=== PATIENT | male | born 1965 | race Caucasian/White ===

== ENCOUNTER 2016-11-24 01:17 | Emergency (ER) | payer SELFPAY ==
[2016-11-24 01:25] VITALS: BP 116/81
--- NOTE | 2016-11-24 01:33 | EDM.PDOC ---
ED HPI GENERAL MEDICAL PROBLEM - General Chief Complaint: Chest Pain Stated Complaint: [facility] Time Seen by Provider: 11/24/16 01:23 - History of Present Illness INITIAL COMMENTS - FREE TEXT/NARRATIVE: 51-year-old male presents emergency room, brought in by EMS, with chest pain. This pain started around 10:30-11:00 this evening. He describes it as substernal it does not radiate into his arms or into his neck At times it goes across his left lower chest. This pain is not associated with any diaphoresis or shortness of breath. He did have some brief nausea. EMS gave him a spray of nitroglycerin he developed a headache fairly quickly and this was followed up with some morphine with good relief of symptoms. 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 His pacemaker rate was turned down to 45. It sounds like he has a pacemaker defibrillator. However by history his last ejection fraction was in the low 60s Middle Chest Pain Score (Numeric/FACES): 2 - Related Data Allergies Allergy/AdvReac Type Severity Reaction Status Date / Time niacin Allergy Redness Verified 11/24/16 01:29 Home Meds: Home Meds Amiodarone [Cordarone] 200 mg PO DAILY 11/24/16 [History] Aspirin 81 mg PO BRK 11/24/16 [History] Carvedilol 6.25 mg PO BID 11/24/16 [History] Lansoprazole [Prevacid] 15 mg PO DAILY 11/24/16 [History] Lansoprazole [Prevacid] 30 mg PO Q24H #30 capsule. 11/24/16 [Rx] Levothyroxine [Synthroid] 200 mcg PO ACBREAKFAST 11/24/16 [History] Losartan [Cozaar] 25 mg PO DAILY 11/24/16 [History] Magnesium Oxide 400 mg PO DAILY 11/24/16 [History] Pravastatin Sodium [Pravachol] 40 mg PO BEDTIME 11/24/16 [History] Sucralfate [Carafate] 1 gm PO QIDACANDBED #30 tablet 11/24/16 [Rx] ED ROS GENERAL - Review of Systems Review Of Systems: See Below Constitutional: Reports: No Symptoms HEENT: Reports: No Symptoms Respiratory: Reports: No Symptoms Cardiovascular: Reports: Chest Pain. Denies: Dyspnea on Exertion, Edema Endocrine: Reports: No Symptoms GI/Abdominal: Reports: No Symptoms : Reports: No Symptoms Neurological: Reports: No Symptoms ED EXAM, GENERAL - Physical Exam Exam: See Below Exam Limited By: No Limitations General Appearance: Alert, No Apparent Distress Eye Exam: Bilateral Eye: Normal Inspection Ears: Normal External Exam, Normal Canal, Hearing Grossly Normal, Normal TMs Nose: Normal Inspection, Normal Mucosa, No Blood Throat/Mouth: Normal Inspection, Normal Lips, Normal Teeth, Normal Gums, Normal Oropharynx, Normal Voice, No Airway Compromise Head: Atraumatic, Normocephalic Neck: Normal Inspection, Supple, Non-Tender, Full Range of Motion. No: Lymphadenopathy (L), Lymphadenopathy (R) Respiratory/Chest: No Respiratory Distress, Lungs Clear, Normal Breath Sounds Cardiovascular: Regular Rate, Rhythm, No Edema, No Murmur, Other (Heart rate in the 50s) GI/Abdominal: Normal Bowel Sounds, Soft, Non-Tender Back Exam: Normal Inspection. No: CVA Tenderness (L), CVA Tenderness (R) Extremities: Normal Inspection, No Pedal Edema Neurological: Alert, Oriented, CN II-XII Intact, No Motor/Sensory Deficits Psychiatric: Normal Affect, Normal Mood EKG INTERPRETATION EKG Date: 11/24/16 Rhythm: other (Sinus bradycardia rate 49) [place]: normal P-wave: present QRS: other (Intraventricular conduction delay) ST-T: normal QT: normal Comparison: NA - no prior EKG EKG Interpretation Comments: Abnormal Course - Vital Signs Last Recorded V/S: Last Vital Signs Temp 36.1 C 11/24/16 01:22 Pulse 53 L 11/24/16 01:22 Resp 17 11/24/16 01:22 BP 116/81 11/24/16 01:22 Pulse Ox 99 11/24/16 02:24 - Orders/Labs/Meds Orders: Active Orders 24 hr Category Date Time Status EKG Documentation Completion [RC] STAT Care 11/24/16 01:36 Active Chest 1V Frontal [CR] Stat Exams 11/24/16 01:33 Taken Labs: Laboratory Tests 11/24/16 11/24/16 11/24/16 Range/Units 01:49 01:49 01:49 WBC 7.90 (4.23-9.07) K/mm3 RBC 4.12 L (4.63-6.08) M/mm3 Hgb 13.8 (13.7-17.5) gm/L Hct 41.2 (40.1-51.0) % MCV 100.0 H (79.0-92.2) fl MCH 33.5 H (25.7-32.2) pg MCHC 33.5 (32.2-35.5) g/dl RDW Std Deviation 44.2 H (35.1-43.9) fL Plt Count 153 L (163-337) K/mm3 MPV 8.9 L (9.4-12.3) fl Neutrophils % (Manual) 58 (40-60) % Band Neutrophils % 0 (0-10) % Lymphocytes % (Manual) 29 (20-40) % Atypical Lymphs % 2 % Monocytes % (Manual) 8 (2-10) % Eosinophils % (Manual) 2 (0.8-7.0) % Basophils % (Manual) 1 (0.2-1.2) Platelet Estimate Adequate Plt Morphology Comment See note Poikilocytosis 1+ slight Anisocytosis 1+ slight Microcytosis 1+ slight Macrocytosis 1+ slight Ovalocytes 1+ slight RBC Morph Comment Abnormal PT 10.2 (8.0-13.0) SECONDS INR 0.94 APTT 25 (22-36) SECONDS Sodium 142 (136-145) mEq/L Potassium 4.5 (3.5-5.1) mEq/L Chloride 109 H (98-107) mEq/L Carbon Dioxide 27 (21-32) mEq/L Anion Gap 10.5 (5-15) BUN 9 (7-18) mg/dL Creatinine 1.1 (0.7-1.3) mg/dL Est Cr Clr Drug Dosing 85.24 mL/min Estimated GFR (MDRD) > 60 (>60) mL/min BUN/Creatinine Ratio 8.2 L (14-18) Glucose 104 (74-106) mg/dL Calcium 8.2 L (8.5-10.1) mg/dL Total Bilirubin 0.3 (0.2-1.0) mg/dL AST 16 (15-37) U/L ALT 35 (16-63) U/L Alkaline Phosphatase 79 (46-116) U/L Troponin I 0.019 (0.00-0.056) ng/mL Total Protein 6.6 (6.4-8.2) g/dl Albumin 3.3 L (3.4-5.0) g/dl Globulin 3.3 gm/dL Albumin/Globulin Ratio 1.0 (1-2) 11/24/16 Range/Units 04:20 WBC (4.23-9.07) K/mm3 RBC (4.63-6.08) M/mm3 Hgb (13.7-17.5) gm/L Hct (40.1-51.0) % MCV (79.0-92.2) fl MCH (25.7-32.2) pg MCHC (32.2-35.5) g/dl RDW Std Deviation (35.1-43.9) fL Plt Count (163-337) K/mm3 MPV (9.4-12.3) fl Neutrophils % (Manual) (40-60) % Band Neutrophils % (0-10) % Lymphocytes % (Manual) (20-40) % Atypical Lymphs % % Monocytes % (Manual) (2-10) % Eosinophils % (Manual) (0.8-7.0) % Basophils % (Manual) (0.2-1.2) Platelet Estimate Plt Morphology Comment Poikilocytosis Anisocytosis Microcytosis Macrocytosis Ovalocytes RBC Morph Comment PT (8.0-13.0) SECONDS INR APTT (22-36) SECONDS Sodium (136-145) mEq/L Potassium (3.5-5.1) mEq/L Chloride (98-107) mEq/L Carbon Dioxide (21-32) mEq/L Anion Gap (5-15) BUN (7-18) mg/dL Creatinine (0.7-1.3) mg/dL Est Cr Clr Drug Dosing mL/min Estimated GFR (MDRD) (>60) mL/min BUN/Creatinine Ratio (14-18) Glucose (74-106) mg/dL Calcium (8.5-10.1) mg/dL Total Bilirubin (0.2-1.0) mg/dL AST (15-37) U/L ALT (16-63) U/L Alkaline Phosphatase (46-116) U/L Troponin I 0.020 (0.00-0.056) ng/mL Total Protein (6.4-8.2) g/dl Albumin (3.4-5.0) g/dl Globulin gm/dL Albumin/Globulin Ratio (1-2) Meds: Medications Discontinued Medications Generic Name Dose Route Start Last Admin Trade Name Cecile PRN Reason Stop Dose Admin Morphine Sulfate 2 mg 11/24/16 02:23 11/24/16 02:29 Morphine IVPUSH 11/24/16 02:24 2 mg ONETIME ONE Administration Ondansetron HCl 4 mg 11/24/16 02:23 11/24/16 02:27 Zofran IVPUSH 11/24/16 02:24 4 mg ONETIME ONE Administration Sucralfate 1 gm 11/24/16 03:31 11/24/16 03:38 Carafate PO 11/24/16 03:32 1 gm ONETIME ONE Administration - Re-Assessments/Exams Free Text/Narrative Re-Assessment/Exam: 11/24/16 03:46 Laboratory evaluation is normal with a normal troponin chest x-ray shows some cardiomegaly pacemaker defibrillator in place patient required a second dose of morphine here with some nausea and almost upper abdominal discomfort. We'll try him on Carafate and see if this helps. 11/24/16 04:50 Awaiting second troponin the Carafate seems to have helped. 11/24/16 05:53 Second troponin basically unchanged. Patient remains pain-free at this time. Discussed importance of close followup and probably the need of a stress test. He is not eager to stay in the hospital or have a stress test. He does not want me to have him followup in a local clinic or arrange a stress test for him. He would like to followup with his regular physician back in [place]. At this point he will continue his current medications. We'll start him on PPI therapy and a short course of Carafate. Departure - Departure Time of Disposition: 05:55 Disposition: Home, Self-Care 01 Clinical Impression: Chest pain, Dyspepsia Prescriptions: Lansoprazole [Prevacid] 30 mg PO Q24H #30 capsule.dr [place] [Carafate] 1 gm PO QIDACANDBED #30 tablet Forms: ED Department Discharge Additional Instructions: Return to the emergency room with any questions or problems. Followup with your regular physician or investigation clerk as soon as you can. You been started on Prevacid take this once daily 60 minutes before your morning or evening meal. He been started on Carafate you'll take this for one week. This is to be taken 4 times daily just before breakfast lunch and supper and at bedtime. This medication can interfere with absorption of other medications. Take all your other medications at least one hour before taking this or 2 hours afterwards. - My Orders Last 24 Hours: My Active Orders 11/24/16 01:33 Chest 1V Frontal [CR] Stat 11/24/16 01:36 EKG Documentation Completion [RC] STAT - Assessment/Plan Last 24 Hours: My Active Orders 11/24/16 01:33 Chest 1V Frontal [CR] Stat 11/24/16 01:36 EKG Documentation Completion [RC] STAT
[2016-11-24] MEDS ORDERED: Morphine 2 MG/ML Syringe IVPUSH ONE (02:23)
[2016-11-24] MEDS ORDERED: Ondansetron 4 MG/2 ML SDV IVPUSH ONE (02:23)
[2016-11-24] MEDS ORDERED: Sucralfate Suspension 1 GM/10 ML Cup PO ONE (03:31)
--- NOTE | 2016-11-26 09:36 | CR ---
Chest: Frontal view of the chest was obtained. Comparison: No previous study. Heart size is slightly enlarged. AICD is present. Lungs are clear with no acute infiltrates. Bony structures are grossly intact. Impression: 1. Nothing acute is identified on frontal chest x-ray. Diagnostic code #1
== END 2016-11-24 06:29 | disposition home or self-care (01) ==
LOC: JD.ED 01:17
DX: R07.2 Precordial pain (principal); R10.13 Epigastric pain; I25.2 Old myocardial infarction; Z95.5 Presence of coronary angioplasty implant and graft; Z95.0 Presence of cardiac pacemaker; Z79.899 Other long term (current) drug therapy; Z88.8 Allergy status to other drugs, medicaments and biological substances
CPT/HCPCS: 36415; 71010; 80053; 84484; 85025; 85610; 85730; 93005; 96374; 96375; 99285; A9270; J2270; J2405; 99284